=== PATIENT | female | born 1980 | race Caucasian/White ===

== ENCOUNTER 2023-05-31 16:23 | Emergency (ER) | payer MEDICARE, MEDICAID, SELFPAY ==
--- NOTE | ~2023-05-31 | US_ITS ---
EXAMINATION: US OBSTETRICAL ULTRASOUND CLINICAL INFORMATION: 7 weeks . Vaginal bleeding. COMPARISON: None available. LMP: Unknown. Gestational age by maternal dates is . Estimated date of delivery by maternal dates is . TECHNIQUE: Transabdominal and transvaginal pelvic ultrasound. Transvaginal exam performed for better visualization of the uterus and gestational sac. FINDINGS: The uterus is retroverted. Intrauterine gestational sac. There is question identification of a pole. Candelaria Arenas-rump length measures 0.38 cm which would suggest gestational age 6 weeks 1 day and estimated date of delivery 01/23/2024. No heart activity is seen. No yolk sac. Active bleeding seen. Ovaries are normal. The right ovary measures 2.5 x 2.2 x 1.7 cm. The left ovary measures 2.5 x 1.7 x 1.8 cm. There is a 1.8 x 1.2 x 1.6 cm simple left adnexal or paraovarian cyst. There is no fluid in the maternal pelvis. US/US OB pelvic and transvaginal IMPRESSION: Intrauterine gestational sac. Question identification of a pole with date suggesting 6 weeks 1 day and estimated date of delivery 01/23/2024. No heart activity or yolk sac. Active bleeding seen.
[2023-05-31 17:16] VITALS: BP 136/90; PULSE 96; RESP 16; TEMP 37; O2SAT 98; BMI 25.0
--- NOTE | 2023-05-31 17:17 | ED.GENADULT ---
HPI - General Adult General Chief complaint: Vaginal Bleeding Stated complaint: 7WKS /ABN BLEEDING Time Seen by Provider: 05/31/23 20:35 Source: patient Mode of arrival: ambulatory Limitations: no limitations History of Present Illness HPI narrative: Patient is a 43-year-old female presenting to the emergency department with vaginal bleeding, unsure of LMP, believes she is 7 weeks . Has not had an ultrasound yet to confirm IUP. States she put a new pad on when leaving the house one hour ago, has already soaked through it. Denies clots. Denies lower abdominal cramping. complaint: vaginal bleeding Onset (ago): hour(s) Relieving factors: none Exacerbating factors: none Treatments prior to arrival: none Related Data Allergies Allergy/AdvReac Type Severity Reaction Status Date / Time prochlorperazine AdvReac Anxiety Verified 05/31/23 17:20 [From Compazine] Review of Systems Review of Systems: As per HPI Yes all other systems are reviewed and are negative Constitutional: Constitutional: Reports as per HPI Physical Exam ED Vital Signs: Vital Signs - 24 hr 05/31/23 17:16 Temperature 98.6 F Pulse Rate 96 Respiratory Rate 16 Blood Pressure 136/90 H Pulse Oximetry 98 Oxygen Delivery Method Room Air BMI result Body Mass Index 25.0 Vital signs have been reviewed and appear to be correct. Blood pressure normal. Heart rate normal. Respiratory rate normal. Temperature normal. Oxygen saturation normal. Const General: cooperative, healthy appearing and no acute distress Orientation/consciousness: oriented to person, oriented to place, oriented to time and patient oriented x3 Limitations: no limitations HENMT Head: Yes normocephalic and Yes atraumatic Ears: external ears normal General nose exam: Normal external nose present Face and sinus: Yes face symmetric Mouth: oropharynx normal and moist mucous membranes Throat: Yes uvula midline Eyes Pupils: Equal, round and reactive pupils present Neck Neck: Yes normal visual inspection and Yes supple Resp Effort & Inspection: normal respiratory effort and able to speak in complete sentences Auscultation: clear to auscultation bilaterally Cardio Rate: regular rate Rhythm: regular rhythm Heart sounds: S1 normal heart sound present and S2 normal heart sound present GI Palpation (GI): Soft to palpation and nontender Auscultation: normoactive bowel sounds General: Yes no CVA tenderness Back/Spine/Pelvis Back: no CVA tenderness Skin General skin exam: elasticity normal, turgor normal and no pallor Neuro General: oriented to person, oriented to place, oriented to time, patient oriented x3, moves all extremities, no focal motor deficits and CN's II-XI intact bilaterally Cranial nerves: Yes Equal, round and reactive pupils present Cognition (Neuro): normal cognition Extrem General: Yes full ROM, Yes no pedal edema and Yes no calf tenderness Psych Mental Status: mental status grossly normal Affect: normal affect Thought process: Normal thought process present Medical Decision Making Medical Decision Making MDM Narrative: Patient is a 43-year-old female presenting to the emergency department with vaginal bleeding, unsure of LMP, believes she is 7 weeks . On exam patient is awake, A+Ox3, VS WNL, afebrile, normal neurological exam without focal deficits, physical exam findings as above. Given reported symptoms and physical exam findings, initial differential includes threatened , ectopic , subchorionic hemorrhage, implanation bleeding. Labs notable for no anemia, no leukocytosis, [place] 7547, Rh positive. Ultrasound notable for intrauterine gestational sac, questionable pole with dates suggesting 6 weeks 1 day, no heart activity or yolk sac, active bleeding. My interpretation is in agreement with the radiologist's interpretation. Results discussed with patient that symptoms are likely spontaneous . 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 Return precautions discussed. Patient verbalized understanding of and agreement with plan. Differential Diagnosis Differential Diagnoses: The differential diagnosis associated with the presentation includes As per MDM. Admission/Observation Consideration of admission/observation: Escalation of care including admission/observation considered Lab Data [facility] Lab Attestation statement: I reviewed the patient's lab results. As per MDM. 05/31/23 18:00 05/31/23 17:59 Labs: Lab Results 05/31/23 05/31/23 Range/Units 17:59 18:00 WBC 9.5 (4.8-10.8) X10*3/uL RBC 4.38 (4.20-5.50) X10*6/uL Hgb 14.1 (12.0-16.0) g/dl Hct 40.1 (37.0-47.0) % MCV 91.6 (80.0-98.0) fL MCH 32.2 (27.0-33.0) pg MCHC 35.2 H (31.0-35.0) g/dl RDW 12.5 (11.0-16.0) % Plt Count 306 (160-400) X10*3/uL MPV 8.6 L (9.4-12.3) fL Immature Gran % (Auto) 0.3 (0.0-0.4) % Neut % (Auto) 63.0 (45-73) % Lymph % (Auto) 27.8 (20-40) % Garrard % (Auto) 7.3 (2-11) % Eos % (Auto) 1.2 (0-4) % Baso % (Auto) 0.4 (0-2) % Lymph # (Auto) 2.6 (1.2-4.9) X10*3/uL Garrard # (Auto) 0.7 (0.1-1.2) X10*3/uL Eos # (Auto) 0.1 (0.0-0.4) X10*3/uL Baso # (Auto) 0.0 (0.0-0.2) X10*3/uL Abs Immat Gran (auto) 0.03 (0.00-0.03) X10*3/uL Absolute Neuts (auto) 6.0 (2.0-8.3) x10*3/uL Absolute Nucleated RBC 0.000 (0.0-0.012) X10*3/uL Nucleated RBC % (auto) 0.0 (0.0-0.2) /100WBC PT 11.8 (11.1-13.3) SEC INR 1.0 (0.9-1.1) APTT 31.1 (26.0-36.4) SEC Sodium 137 (135-145) mmol/L Potassium 3.8 (3.3-5.1) mmol/L Chloride 102 (96-108) mmol/L Carbon Dioxide 28 (22-29) mmol/L Anion Gap 11 L (12-20) BUN 9 (9-16) mg/dL Creatinine 0.72 (0.5-1.4) mg/dL Estim Creat Clear Calc 94.3 Estimated GFR > 60 Random Glucose 113 (60-115) mg/dL Calcium 10.4 H (8.4-10.2) mg/dL Total Bilirubin 0.6 (0.0-1.0) mg/dL AST 18 (5-31) U/L ALT 13 (0-31) U/L Alkaline Phosphatase 70 (39-117) U/L Total Protein 7.7 (6.5-8.0) g/dL Albumin 4.4 (3.5-5.0) g/dL Beta HCG, Quant 7547 mIU/mL Blood Type O Positive Independent Interpretation I performed an independent interpretation of an: Ultrasound Interpretation: intrauterine gestational sac, questionable pole with dates suggesting 6 weeks 1 day, no heart activity or yolk sac, active bleeding Radiology Impression Discussion of test interpretation with radiology: I have reviewed the radiologist's reading. Radiologist Impression: US/US OB pelvic and transvaginal IMPRESSION: Intrauterine gestational sac. Question identification of a pole with date suggesting 6 weeks 1 day and estimated date of delivery 01/23/2024. No heart activity or yolk sac. Active bleeding seen. External Record Review External record reviewed: Inpatient record, Office record and Outpatient record Discharge Plan Discharge Clinical Impression: Threatened Patient Disposition: Home, Self-Care Instructions: Threatened Miscarriage (ED) Additional Instructions: You were evaluated in the emergency department today for vaginal bleeding which is likely a threatened miscarriage. You should follow-up with your NARROW [employer]END[employer]ER within two days. Return to the emergency department if you have severe pain, heavy bleeding (bleeding through more than 1 pad per hour), lightheadedness, shortness of breath, high fever or any other concerning symptoms.
[2023-05-31 18:07] LABS: MANUAL DIFF FLAG NO
[2023-05-31 18:10] LABS: Basophils Percent Auto 0.4 % (0-2); Eosinophils Absolute Auto 0.1 X10*3/uL (0.0-0.4); Eosinophils Percent Auto 1.2 % (0-4); Hematocrit 40.1 % (37.0-47.0); Hemoglobin 14.1 g/dl (12.0-16.0); Imm Gran Abs Auto 0.03 X10*3/uL (0.00-0.03); Imm Gran Pct Auto 0.3 % (0.0-0.4); Lymphocytes Absolute Auto 2.6 X10*3/uL (1.2-4.9); Lymphocytes Percent Auto 27.8 % (20-40); Mean Corpuscular HGB Conc 35.2 g/dl (31.0-35.0); Mean Corpuscular Hemoglobin 32.2 pg (27.0-33.0); Mean Corpuscular Volume 91.6 fL (80.0-98.0); Mean Platelet Volume 8.6 fL (9.4-12.3); Monocytes Absolute Auto 0.7 X10*3/uL (0.1-1.2); Monocytes Percent Auto 7.3 % (2-11); Platelet Count 306 X10*3/uL (160-400); Red Blood Count 4.38 X10*6/uL (4.20-5.50); Red Cell Distribution Width 12.5 % (11.0-16.0); White Blood Count 9.5 X10*3/uL (4.8-10.8)
[2023-05-31 18:22] LABS: Prothrombin Time 11.8 SEC (11.1-13.3)
[2023-05-31 18:25] LABS: Partial Thromboplastin Time 31.1 SEC (26.0-36.4)
[2023-05-31 18:27] LABS: Alanine Aminotransferase 13 U/L (0-31); Albumin Level 4.4 g/dL (3.5-5.0); Alkaline Phosphatase 70 U/L (39-117); Anion Gap 11 (12-20); Aspartate Amino Transferase 18 U/L (5-31); Bilirubin Total 0.6 mg/dL (0.0-1.0); Blood Urea Nitrogen 9 mg/dL (9-16); Calcium 10.4 mg/dL (8.4-10.2); Carbon Dioxide 28 mmol/L (22-29); Chloride 102 mmol/L (96-108); Creatinine Clr Calc Pharmacy 94.3; Estimated Glomerular Filt Rate > 60; Glucose Random 113 mg/dL (60-115); HCG Quantitative 7547 mIU/mL; Potassium 3.8 mmol/L (3.3-5.1); Sodium 137 mmol/L (135-145); Total Protein 7.7 g/dL (6.5-8.0)
== END 2023-05-31 21:13 | disposition home or self-care (01) ==
LOC: HO.ED 20:53
PROVIDERS: Registered Nurse Emergency; Emergency Provider Student in an Organized Health Care Education/Training Program
DX: O20.9 Hemorrhage in early pregnancy, unspecified (principal); Z3A.01 Less than 8 weeks gestation of pregnancy; Z79.899 Other long term (current) drug therapy
CPT/HCPCS: 36415; 76801; 76817; 80053; 84702; 85025; 85610; 85730; 86900; 86901; 99282; 99283

== ENCOUNTER 2024-05-10 18:58 | Emergency (ER) | payer MEDICARE, MEDICAID, SELFPAY ==
--- NOTE | ~2024-05-10 | XR_ITS ---
EXAMINATION: XR CHEST CLINICAL INFORMATION: Cough. Chest burning. COMPARISON: None available. TECHNIQUE: 2 views of the chest were obtained. FINDINGS: The heart is normal in size. There is a patchy, moderate size right lower lobe opacity concerning for infection. The left lung appears clear. There is no pleural effusion or pneumothorax. No acute osseous abnormality. XR/XR chest 2V IMPRESSION: Moderate-sized right lower lobe opacity concerning for infection. This should be followed to resolution. Electronically signed by: Nate Esposito DO 05/10/2024 08:53 PM EST RP
--- NOTE | 2024-05-10 19:02 | ECG_ITS ---
Test Reason : CP Blood Pressure : / mmHG Vent. Rate : 101 BPM Atrial Rate : 101 BPM P-R Int : 146 ms QRS Dur : 074 ms QT Int : 306 ms P-R-T Axes : 068 054 014 degrees QTc Int : 396 ms Sinus tachycardia Otherwise normal ECG No previous ECGs available Referred By: Magda Conte Electronically Signed By:Pablo Beltran
--- NOTE | 2024-05-10 19:02 | ED.CHESTPAIN ---
HPI - Chest Pain General Chief Complaint: Upper Respiratory Symptoms Stated Complaint: congested cough,burning feeling in chest Time Seen by Provider: 05/11/24 00:52 Source: patient, RN notes reviewed and old records reviewed Mode of arrival: ambulatory Limitations: no limitations History of Present Illness ED Provider: Walter WESTBROOK narrative: 44-year-old female presents for evaluation of a cough and a burning and sensation in her chest. Patient reports his cough started about 1 month ago. She reports intermittent shortness of breath. She states when she coughs she has a burning in her chest Her symptoms are reminiscent of when she was diagnosed with pneumonia about 15 years ago She denies any fevers. She reports fatigue She denies any medical history. Denies any abdominal pain, nausea vomiting She is a nonsmoker Related Data Previous Rx's ?Medication ?Instructions ?Recorded amoxicillin 875 mg-potassium 1 tab PO BID #14 tabs 05/11/24 clavulanate 125 mg tablet azithromycin 250 mg tablet 250 mg PO DAILY 4 days #4 tabs 05/11/24 Allergies Allergy/AdvReac Type Severity Reaction Status Date / Time prochlorperazine AdvReac Anxiety Verified 05/10/24 19:04 [From Compazine] Review of Systems Constitutional: Constitutional: Denies body ache(s), Denies chills, Denies fever(s), Reports lethargy, Reports malaise and Reports weakness ENT: Denies vertigo and Denies dizziness Cardiovascular: Cardiovascular: Denies chest pain, Reports dyspnea and Reports dyspnea on exertion Respiratory: Respiratory: Reports cough, Reports dyspnea and Reports dyspnea on exertion Gastrointestinal: Gastrointestinal: Denies abdominal pain, Denies nausea and Denies vomiting Genitourinary: Genitourinary: Denies pelvic pain Musculoskeletal: Musculoskeletal: Denies back pain Integumentary/Breasts: Skin/Breast: Denies rash Neurologic: Denies vertigo, Denies dizziness and Reports weakness Psychiatric: Psychiatric: Denies anxiety [facility] Social History Social History Smoked in Last 30 Days: No Use of substances other than those prescribed or required for medical reasons: No Advance Directives: No Patient : No Physical Exam Vital Signs: Vital Signs: Last Vital Signs Temp 97.3 F 05/11/24 01:12 Pulse 94 05/11/24 01:12 Resp 22 H 05/11/24 01:12 BP 107/69 05/11/24 01:12 Pulse Ox 99 05/11/24 01:12 O2 Del Method Room Air 05/11/24 01:12 BMI result Body Mass Index 22.5 Const: General: healthy appearing, comfortable, no acute distress, alert and awake Nutritional Appearance: well nourished Orientation/consciousness: patient oriented x3 HEENT: Head: Yes normocephalic and Yes atraumatic Eyes: Eyelids: Yes eyelids normal Conjunctivae: conjunctivae normal Sclerae: sclerae normal Corneas: corneas normal Pupils: Equal, round and reactive pupils present EOM: EOMs intact bilaterally Neck: Neck: Yes full ROM Resp: Other: Mild right-sided wheeze Effort & Inspection: normal respiratory effort, able to speak in complete sentences, no audible wheezes and not labored Cardio: Rate: regular rate Rhythm: regular rhythm GI: Inspection: No distended Palpation (GI): Soft to palpation, not firm, nontender, no guarding and not rigid Skin: General skin exam: elasticity normal Neuro: General: patient oriented x3 Cranial nerves: Yes Equal, round and reactive pupils present and Yes Bilaterally intact EOM present Cognition (Neuro): normal cognition Course Course Course Narrative: This is a Rapid Medical Exam performed in triage by Magda Conte PA-C. Full HPI, ROS and PE to be performed by primary ED provider. 44-year-old female presenting to the ED c/o SOB, cough, chest pain w/coughing, generalized fatigue/weakness x days. +sick contact. denies travel PE: talking in complete sentences, nontoxic appearing Plan: EKG, labs, CXR, viral testing Medications Administered Discontinued Medications Generic Name Dose Route Start Last Admin Trade Name Julien PRN Reason Stop Dose Admin Amoxicillin/Clavulanate Potassium 875 mg 05/11/24 00:59 05/11/24 01:08 Amoxicillin/Potassium Clav 875 Mg Tablet PO 05/11/24 01:00 875 mg ONCE ONE Administration Azithromycin 500 mg 05/11/24 00:59 05/11/24 01:08 Azithromycin 500 Mg Tablet PO 05/11/24 01:00 500 mg ONCE ONE Administration Medical Decision Making Medical Decision Making MDM Narrative: 44-year-old female presents for evaluation of cough, burning with coughing. Her chest x-ray shows a right-sided pneumonia. She is not septic, she is not hypoxic, she is in no respiratory distress. We took her for an ambulation trial and her oxygen saturation maintained at 98-99%. We will treat her for community-acquired pneumonia with Augmentin and azithromycin. She will follow up with her PCP, I recommended a repeat chest x-ray in about 1 month to ensure resolution of her infiltrate Differential Diagnosis Differential Diagnoses: The differential diagnosis associated with the presentation includes Community-acquired pneumonia Mycoplasma pneumonia Upper respiratory infection COVID-19 Influenza Bronchitis Admission/Observation Consideration of admission/observation: Escalation of care including admission/observation considered Consider admission due to the pneumonia however she is not hypoxic or septic Lab Data Labs: Lab Results 05/10/24 Range/Units 19:37 Influenza Type A (PCR) NEGATIVE (Negative) Influenza Type B (PCR) NEGATIVE (Negative) RSV RNA Qual (PCR) NEGATIVE (Negative) SARS-CoV-2 RNA (RT-PCR) NEGATIVE (Negative) Independent Interpretation I performed an independent interpretation of an: Plain X-Ray (Right middle lobe infiltrate) Radiology Impression Discussion of test interpretation with radiology: I have reviewed the radiologist's reading. Radiologist Impression: FINDINGS: The heart is normal in size. There is a patchy, moderate size right lower lobe opacity concerning for infection. The left lung appears clear. There is no pleural effusion or pneumothorax. No acute osseous abnormality. XR/XR chest 2V IMPRESSION: Moderate-sized right lower lobe opacity concerning for infection. This should be followed to resolution. Electronically signed by: Nate Esposito DO 05/10/2024 08:53 PM [facility] [place] Discharge Plan Discharge Clinical Impression: Community acquired pneumonia Patient Disposition: Home, Self-Care Instructions: Community Acquired Pneumonia (ED) Additional Instructions: Your workup in the ER today show pneumonia. This is on your right middle lobe. Take the antibiotics as prescribed. Drink lots of fluids. Return for new or worsening symptoms, especially if you are having a hard time breathing. I do recommend that you get a repeat chest x-ray in about 1 month to ensure improvement of the pneumonia Prescriptions: New azithromycin 250 mg tablet 250 mg PO DAILY 4 Days Qty: 4 0RF Rx Instructions: start on day 2 of therapy amoxicillin-pot clavulanate 875-125 mg tablet 1 tab PO BID Qty: 14 0RF Interventions: ED Discharge Assessment Last Done: 05/11/24 01:12 Discharge Date/Time: 05/11/24 01:16 Print Language: Indonesian
[2024-05-10 19:03] VITALS: BP 127/78; PULSE 112; RESP 20; TEMP 37.6; O2SAT 98; BMI 22.5
[2024-05-10 20:18] LABS: Influenza A PCR NEGATIVE (Negative); Influenza B PCR NEGATIVE (Negative); Resp Syncy Virus RNA Qual PCR NEGATIVE (Negative); SARS COV2 PCR INHOUSE NEGATIVE (Negative)
[2024-05-10 23:38] VITALS: BP 113/80; PULSE 92; RESP 20; TEMP 36.8; O2SAT 98
[2024-05-11 01:08] VITALS: BP 107/69; PULSE 94; RESP 22; TEMP 36.3; O2SAT 99
[2024-05-11] MEDS: Azithromycin 500 MG TABLET PO (01:08)
[2024-05-11] MEDS: Amoxicillin/Potassium Clav 875 MG TABLET PO (01:08)
[2024-05-11 01:12] VITALS: BP 107/69; PULSE 94; RESP 22; TEMP 36.3; O2SAT 99
== END 2024-05-11 01:16 | disposition home or self-care (01) ==
PROVIDERS: Physician Assistant; Emergency Provider Emergency Medicine Emergency Medical Services; PCP Family Medicine
DX: J18.9 Pneumonia, unspecified organism (principal); R05.9 Cough, unspecified; R06.02 Shortness of breath; R53.83 Other fatigue
CPT/HCPCS: 0241U; 71046; 93005; 99283; 99285

== ENCOUNTER → 2024-05-10 19:02 | Outpatient (BNV) | payer MEDICAID, SELFPAY | PROVIDERS: Emergency Provider Emergency Medicine Emergency Medical Services; PCP Family Medicine; Visit Provider Internal Medicine Cardiovascular Disease | DX: R07.9 Chest pain, unspecified (principal); R00.0 Tachycardia, unspecified | CPT/HCPCS: 93010 ==